=== PATIENT | male | born 1980 | race Caucasian/White ===

== ENCOUNTER 2023-04-25 08:00 | Outpatient (RCR) | payer OTHER, SELFPAY ==
--- NOTE | 2023-04-25 09:00 | BH.SGPN.GN ---
Behaviors/Verbalizations/Mental Status: [Patient was alert and oriented, appropriately dressed and groomed. Eye contact was good, motor activity normal, speech within normal limits. Affect congruent, mood content. Thoughts linear, logical, no signs of hallucinations or delusions. Reviewed patients mood tracker and the patient reported no symptoms of depressed mood, anxiety/panic attacks, agitation/irritability/anger, self-harm urges, or thoughts/risk of suicide.?] Client Response/Progress/Benefit: [This is the patients first group; he was open to share his mental health goals and stressors with the rest of the group. Patient reported his mood was ?peaceful?. 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 The second win is that he got his basement cleaned out for winter. He shared that he does a lot of woodworking in the colder months in his basement, and it needed cleared out. The stressor was finances because he is now only working 3 days a week so he can attend group but has talked with his to plan. Patient was interactive and respectful with other group members about their mental wins and stressors. Patient benefited from the discussion by listening to feedback and giving input on his peer?s stressors and mental health wins. Patient will continue with IOP treatment to help develop healthy skills, promote mood stability, and improve distress tolerance. ] Narrative Note: []
--- NOTE | 2023-04-25 10:10 | BH.SGPN.GN ---
Behaviors/Verbalizations/Mental Status: []Eye contact is fair, at times good. Alert and oriented. Motor activity is appropriate. Appearance is casual. grooming is appropriate. Speech is Appropriate. Mood is anxious. Affect is congruent. Thoughts are linear and logical. No evidence of psychosis or hallucinations. Client Response/Progress/Benefit: []Client active participant throughout group session AEB providing contributions throughout, listening attentively to others, and taking notes throughout session. Group attentive during psychoeducation about emotion regulation and dysregulation. Appeared to connect with scenarios reviewed in group on emotion regulation vs dysregulation. Shared how in the past he would manage his uncomfortable emotions with substances. Client benefited from session by gaining an increased understanding on the importance of managing emotions. Client to continue IOP to improve daily functioning, increase healthy coping, and prevent decompensation.
--- NOTE | 2023-04-25 14:12 | BH.COMM_ITS ---
Communication Note Communication with Client Communication Note: Met with pt to complete initial paperwork and administer the CSSR-S screening and risk assessment. Pt is low risk per the CSSR-S screening and risk assessment. Pt denies any active SI, plan, or intent. Pt states he has had thoughts of thinking things would be better if he were , but denies ever thinking about killing himself. No guns at home. No stockpiles of medications. Therapist counseled on decreasing access to lethal means. Discussed case with Dr. Kaba and pt will be admitted to [facility] tx with a diagnosis of PTSD F43.10.
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
[2023-04-27 12:01] VITALS: BP 116/85; PULSE 51
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
--- NOTE | 2023-04-27 12:59 | BH.DR.ITP ---
Initial Treatment Plan Patient Information Visit Information: ADMISSION DATE: EXPECTED LOS: 4-6 weeks Problems/Symptoms Problem #1:: depression Symptom:: sadness, hopelessness, guilt, decreased concentration, anhedonia, isolation, low energy Problem #2:: Worry, rumination Symptom:: avoidance, nightmares, flashbacks
--- NOTE | 2023-04-27 16:05 | BH.MTP ---
Master Treatment Plan Patient Information Program Physician:: Dr. Amin Primary Therapist:: Sue Pastrana, [facility] Psychiatric Diagnoses Psychiatric Diagnoses:: 1. PTSD 2. Substance-induced mood disorder (F19.94) 3. 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 Cannabis use disorder 5. Methamphetamine and alcohol use disorder (sober since March 17, 2023) 6. Primary support, work and financial issues Diagnosis Code(s):: F43.1 Estimated LOS Estimated LOS (in weeks):: 6 Problem/Goal #1 Problem/Goal #1 Stated Goal:: Client will decrease depressive symptoms, isolation, and agitation due to Major Depressive Disorder through Intensive Outpatient Program.? Description of Barriers: Pt has hx of difficulty tolerating medications and is hesitant on taking medications which could be hindrance to treatment. Potential barriers could be negative thinking, anxious thoughts, isolation, and poor emotion control. Functional Impact: The patient is a 42-year-old male with a history of depression, anxiety, PTSD, methamphetamine use and alcohol use disorder. The patient was referred to the [facility] behavioral health IOP by [facility] adult probation because the patient states my mental health is impacting my ability to function. He currently has some depression, guilt, decreased concentration, worthlessness, lack of motivation, isolation and states he has had low self-esteem for a very long time. Denies any other alcohol or methamphetamine use since March 17, 2023. The patient states that 2 years ago he began hearing voices after methamphetamine use which are auditory hallucinations of voices of people he knows for the most part. He has nightmares, avoidance, exaggerated startle and occasional reexperiencing from this. Goal Relevant Strengths/Supports: Pt is resilient, determined, and reports being motivated to get better. Objectives Objective #1: Stated Objective: Client will learn and utilize 2-3 healthy coping strategies to manage depressive symptoms. Interventions: Therapist and group will utilize CBT techniques to assist client with understanding the connection between thoughts, feelings and behaviors. Education will be provided on behavioral activation. Therapist will assist client in learning internal coping strategies to manage depressive symptoms, along with helping client identify triggers. Discharge Criteria: Client will have achieved this goal when can verbalize and has practiced at least 2 healthy coping strategies that successfully manage depressive symptoms. Target Date: 06/06/23 Review Date: 05/23/23 Objective #2: Stated Objective: Client will identify and replace 2-3 negative thinking patterns that reinforce depressed symptoms. Interventions: Group and therapist will assist the client in identifying, challenging, and replacing dysfunctional thoughts with positive self-enhancing thoughts. Discharge Criteria: Client will have achieved this goal when can identify at least 2 negative thinking patterns, replace thoughts with rational thoughts. Target Date: 06/06/23 Review Date: 05/23/23 Problem/Goal #2 Problem/Goal #2 Stated Goal:: Stabilize anxiety level while increasing ability to function on daily basis. Description of Barriers: Pt has hx of difficulty tolerating medications and is hesitant on taking medications which could be hindrance to treatment. Potential barriers could be negative thinking, anxious thoughts, isolation, and poor emotion control. Functional Impact: The patient is a 42-year-old male with a history of depression, anxiety, PTSD, methamphetamine use and alcohol use disorder. The patient was referred to the [facility] behavioral health IOP by [facility] adult probation because the patient states my mental health is impacting my ability to function. He currently has some depression, guilt, decreased concentration, worthlessness, lack of motivation, isolation and states he has had low self-esteem for a very long time. Denies any other alcohol or methamphetamine use since March 17, 2023. The patient states that 2 years ago he began hearing voices after methamphetamine use which are auditory hallucinations of voices of people he knows for the most part. He has nightmares, avoidance, exaggerated startle and occasional reexperiencing from this. Goal Relevant Strengths/Supports: Pt is resilient, determined, and reports being motivated to get better. Objectives Objective #1: Stated Objective: Client will learn and implement 2-3 calming skills to reduce overall anxiety and manage anxiety symptoms. Interventions: Therapist and group sessions will help client identify physiological warning signs of anxiety, increase awareness of thoughts that increase anxiety, and identify behaviors that reinforce anxious symptoms. Group and individual counseling will teach client calming skills to help manage anxious symptoms. Discharge Criteria: Client will have achieved this goal when can verbalize at least 2 calming skills and reports skills successfully help reduce anxious symptoms. Target Date: 06/06/23 Review Date: 05/07/23 Objective #2: Stated Objective: Client will learn and implement 2-3 problem solving strategies to realistically addressing worries. Interventions: Therapist and group will teach client problem-solving strategies involving defining a problem, brainstorming solutions, selecting and implementing various solutions. Discharge Criteria: Client will have achieved this goal when can verbalize at least two problem solving strategies and utilize the strategies to realistically address worries. Target Date: 06/06/23 Review Date: 05/23/23
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
--- NOTE | 2023-04-28 09:00 | BH.SGPN.GN ---
Behaviors/Verbalizations/Mental Status: [Patient was alert and oriented, appropriately dressed and groomed. Eye contact was good, motor activity normal, speech within normal limits. Affect congruent, mood content. Thoughts linear, logical, no signs of hallucinations or delusions. Reviewed patients mood tracker and the patient reported depressed mood, anxiety/panic attacks, agitation/irritability/anger, self-harm urges, and thoughts/risk of suicide within normal limits.] Client Response/Progress/Benefit: [Patient was engaged and open to the discussion. Patient reported her mood being ?Happy?.??Patient stated his first win was that he started taking his new medication that he wasn?t sure about. The second win was that he has started to finally accept that he can only do so much and that its okay. The patient stated his stressor is money since he isn?t working as much and the voices in his head. He said the voices are typically saying good things but sometimes he gets annoyed with them and wishes they would stop. Patient was interactive and respectful with other group members about their mental wins and stressors. Patient benefited from the discussion by listening to feedback and giving input on her peer?s stressors and mental health wins. Patient will continue with IOP treatment to help develop healthy skills, promote mood stability, and improve distress tolerance. ] Narrative Note: []
--- NOTE | 2023-04-28 10:17 | BH.SGPN.GN ---
Behaviors/Verbalizations/Mental Status: []Pt alert and oriented, neatly dressed and groomed. Eye contact good. Motor activity appropriate. Speech within normal limits. Affect congruent, mood content. Thoughts linear, logical, no signs of hallucinations or delusions. Client Response/Progress/Benefit: [] Pt was an active participant AEB providing input and was actively taking notes. Connected with the topic of pitfalls and listened to group discussion on internal and external barriers that prevent from choosing a healthier path to mental wellness. Group worked together to identify examples of personal internal pitfalls and pt identified theirs as fear of the unknown, helplessness, and difficulty communicating with supports. Pt benefited from group as Pt learned to better identify and normalize potential barriers to improving mental health symptoms. Pt also gained awareness of the difference between external triggers and self-sabotaging behaviors. Pt will continue IOP tx to prevent decompensation, gain healthy coping skills to prevent relapse, and improve mood stability. Narrative Note: []
--- NOTE | 2023-04-28 11:15 | BH.SGPN.GN ---
Behaviors/Verbalizations/Mental Status: []Pt alert and oriented, casually dressed and groomed. Eye contact good. Motor activity appropriate. Speech within normal limits. Affect congruent. Mood euthymic. Thoughts linear, logical, no signs of hallucinations or delusions. Client Response/Progress/Benefit: []Pt was an active participant AEB contribution to discussion, taking notes, and willingness to engage in group activity. Connected with the topic of pitfalls and listened to group discussion on internal and external barriers that prevent from choosing a healthier path to mental wellness. Group worked together to identify examples of internal pitfalls presented in the activity as well as strategies for managing or preventing these. Pt identified personal pitfalls to include: fear of the unknown, mistrust, and difficulties communicating. Pt identified wanting to work on pitfall of communication by practicing checking-in with his on an emotional level. Benefited from group as pt learned to better identify and normalize potential barriers to improving mental health symptoms. Pt to continue IOP to challenge distorted thoughts, increase healthy coping, and prevent decompensation. Narrative Note: []
--- NOTE | 2023-05-02 09:10 | BH.SGPN.GN ---
Behaviors/Verbalizations/Mental Status: [Patient was alert and oriented, appropriately dressed and groomed. Eye contact was good, motor activity normal, speech within normal limits. Affect congruent, mood content. Thoughts linear, logical, no signs of hallucinations or delusions. Reviewed Patients symptom tracker and the patient reported themselves as having no symptoms in depressed mood, anxiety/panic attacks, agitation/irritability/anger, self-harm urges, or thoughts/risk of suicide.] Client Response/Progress/Benefit: [Patient was engaged and open to the discussion. Patient reported his mood to be ?optimistic?. Patients first win was that his medication is working and is happy with it. He does not like how tired it makes him, but he hopes it will subside. The second win was that he spent time with his older kids over the weekend. They painted and made picture frames together. A stressor he said was work. He said that since he only works 3 days a week he is stressing about not getting behind with his job. Patient was interactive and respectful with other group members about their mental wins and stressors. Patient benefited from the discussion by listening to feedback and giving input on his peer?s stressors and mental health wins. Patient will continue with IOP treatment to help develop healthy skills, promote mood stability, and improve distress tolerance. ] Narrative Note: []
--- NOTE | 2023-05-02 10:15 | BH.SGPN.GN ---
Behaviors/Verbalizations/Mental Status: [] Eye contact is good. Motor activity is appropriate. Appearance is casual. Speech is Appropriate. Mood is euthymic. Affect is congruent. Thoughts are linear and logical. No evidence of psychosis. Client Response/Progress/Benefit: [] Client was attentive during interactive group discussions AEB by writing notes, asking questions, and sharing when prompted. Attentive during psychoeducation on the six types of boundaries (physical, emotional, intellectual, sexual, time, and material). Along with peers, pt contributed to interactive discussion identifying common challenges to setting and maintaining healthy boundaries which included; fear of other's response, guilt, fear of losing relationships, and resentment for having to establish the boundary in the first place. Client along with peers identified the benefits to setting boundaries. Client shared he struggles with setting boundaries because he has had past negative experiences when establishing a boundary, as well as struggles with not knowing how to establish said boundary in a non-confrontational way. Client benefited from increased awareness and insight on the importance/benefit to setting healthy boundaries. Will continue in IOP to improve daily functioning, increase healthy coping and communication with supports, and prevent decompensation. Narrative Note: []
--- NOTE | 2023-05-02 11:15 | BH.SGPN.GN ---
Behaviors/Verbalizations/Mental Status: []Pt alert and oriented, casually dressed and groomed. Eye contact good. Motor activity appropriate. Speech within normal limits. Affect congruent, mood euthymic. Thoughts linear, logical, no signs of hallucinations or delusions. Client Response/Progress/Benefit: []Pt responded well to session, engaged and contributing. Pt attentive during psychoeducation on the different boundary styles. Pt reports connecting most with porous boundary setting style and shared this has impacted his ability to consistently take care of his own mental health needs. Group brainstormed various strategies for improving ability to establish and maintain healthy boundaries. Reported he wants to work on using more assertive communication when trying to establish a boundary. Appeared to benefit from increasing insight to boundary setting styles and the impacts on mental health. Will continue IOP tx to prevent decompensation, improve ability to challenge thought distortions, and increase healthy coping. Narrative Note: []
== END 2023-05-03 23:59 ==
LOC: BHIOP 08:00
PROVIDERS: Referring Provider Psychiatry & Neurology Psychiatry; Visit Provider Psychiatry & Neurology Psychiatry
DX: F43.10 Post-traumatic stress disorder, unspecified (principal); F19.94 Other psychoactive substance use, unspecified with psychoactive substance-induced mood disorder; F12.90 Cannabis use, unspecified, uncomplicated; F10.91 Alcohol use, unspecified, in remission; F11.91 Opioid use, unspecified, in remission
CPT/HCPCS: S9480; 90837; 90853

== ENCOUNTER 2023-05-04 06:49 | Outpatient (RCR) | payer OTHER, SELFPAY ==
[2023-05-04 00:55] VITALS: BP 116/85; PULSE 51
--- NOTE | 2023-05-04 09:00 | BH.SGPN.GN ---
Behaviors/Verbalizations/Mental Status: [Patient was alert and oriented, appropriately dressed and groomed. Eye contact was good, motor activity normal, speech within normal limits. Affect congruent, mood content. Thoughts linear, logical, no signs of hallucinations or delusions. Reviewed Patients symptom tracker and the patient reported depressed mood, anxiety/panic attacks, aggravation/irritation/anger, self-harm urges, and risk/thoughts of suicide within patients normal base level.] Client Response/Progress/Benefit: [Patient was engaged and open to the discussion. 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 ? 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 The second win was described as engaging his children in a new chore board. The patient and his wanted to get their children more involved with the chores and it has been working out well for them. His stressor was that he somehow pulled his neck which is still sore today. He stated he is unsure what happened to it. Patient was interactive and respectful with other group members about their mental wins and stressors. Patient benefited from the discussion by listening to feedback and giving input on his peer?s stressors and mental health wins. Patient will continue with IOP treatment to help develop healthy skills, promote mood stability, and improve distress tolerance. ] Narrative Note: []
--- NOTE | 2023-05-04 10:10 | BH.SGPN.GN ---
Behaviors/Verbalizations/Mental Status: [] Eye contact is good. Motor activity is appropriate. Appearance is casual. Speech is Appropriate. Mood is euthymic. Affect is full. Thoughts are linear and logical. No evidence of psychosis. Client Response/Progress/Benefit: [] Pt participated at times during the group discussions however was mostly quiet and attentive AEB note-taking. Active participant in experiential activity. Attentive during interactive discussion in which group worked together to define resilience (i.e. continuing to bounce back from hardship; willingness to keep trying) and identify benefits of resilience. Attentive during interactive discussion on if resilience is something we are born with or can learn. Provided appropriate thoughts and feedback. Able to relate the experiential activity back to topic of resilience. Worked well in small groups to identify strategies to build resilience. Benefited from increased awareness of the role of resilience in mental health and ways to build resilience. Will continue in IOP to prevent decompensation, increase healthy coping, and to improve functioning. Narrative Note: []
--- NOTE | 2023-05-04 11:10 | BH.SGPN.GN ---
Behaviors/Verbalizations/Mental Status: []Pt alert and oriented, neatly dressed and groomed. Eye contact good. Motor activity appropriate. Speech within normal limits. Affect congruent, mood euthymic. Thoughts linear, logical, no signs of hallucinations or delusions. Client Response/Progress/Benefit: [] Pt responded well to session AEB completing the resilience worksheet provided. Pt actively participated in the discussion and worked cooperatively with group to identify strategies to enhance each of the components discussed. Pt reports belief they already use resilience traits of taking decisive action, maintaining a hopeful outlook, and moving towards goals. Pt discussed that they could work more on improving self-care practices. ?Pt seemed to benefit from discussing strategies for improving personal resilience and identifying resilience traits Pt already possesses. Will continue IOP tx to promote use of healthy coping skills, prevent relapse, and increase distress tolerance skills. ??? Narrative Note: []
--- NOTE | 2023-05-06 09:00 | BH.SGPN.GN ---
Behaviors/Verbalizations/Mental Status: [] Eye contact is good. Motor activity is appropriate. Appearance is casual. Speech is Appropriate. Mood is depressed. Affect is congruent. Thoughts are linear and logical. No evidence of psychosis. Reviewed daily check in sheet and no reports of suicidal ideations or intent. Client Response/Progress/Benefit: [] Pt particpated at times during the group discussion. Attentive. Daily symptom tracker notes 08/08 for depression. Shared with the group that he has been sick for the past couple days which has impacted his motivation. Emotion for today is is irritated. Shared that he had a verbal argument with spouse yesterday we worked it out though. May be still ruminating on the conflict however did not share more with the group. Overall reports that life is stressful, however he is attempting to remain active and follow through with some routines such as family dinners. Reports being behind of stuff for his work which is another stressor. Limited progress noted. Will continue in IOP to prevent decompensation, stablize moood, increase healthy coping, and to improve functioning. Narrative Note: []
--- NOTE | 2023-05-06 10:15 | BH.SGPN.GN ---
Behaviors/Verbalizations/Mental Status: [] Eye contact is good. Motor activity is appropriate. Appearance is casual. Speech is Appropriate. Mood is anxious. Affect is congruent. Thoughts are linear and logical. No evidence of psychosis. Client Response/Progress/Benefit: [] Pt participated at times during the group discussion. Participated in the group activity and was able to relate the activity to the topic of coping skills. Provided feedback during interactive discussion on coping skills. Group identified aspects that can influence copings skills which included; environment, learned behaviors, past experiences, accessibility, and the amount of effort placed in practicing skills. Discussion on the difference between internal vs external coping skills as well as healthy vs unhealthy coping skills such as; denial, minimization, crying, lashing out, substance abuse, retail therapy, and sleeping to escape. Benefited from increased education on coping skills. Will continue in IOP to prevent decompensation, increase healthy coping, and improve functioning to return to work. Narrative Note: []
--- NOTE | 2023-05-09 09:02 | BH.SGPN.GN ---
Behaviors/Verbalizations/Mental Status: [] Pt alert and oriented, Casually dressed and groomed. Eye contact fair to poor. Motor activity appropriate. Speech within normal limits. Affect constricted, mood dsythymic. Thoughts linear, logical, no signs of hallucinations or delusions. Reviewed pt?s symptom tracker, no risk for suicidal ideation, plan, or intent. Client Response/Progress/Benefit: [] Client responded well to session as evidenced by listening attentively to others and sharing with others. Per symptom tracker client reported a 0/5, with 5 being severe, for depressed mood and a 0/5 for anxiety. Client stated mental health positive as spending quality time with his family and connecting with them. Client reported additional positive as getting a big sale for work. Client stated getting a big sale for work helps decrease financial stress. Client reported this new sale is also a stressor because he's worried about getting the job done on time. Client shared in a small group that he was struggling a little because he's dog unexpectedly on Tuesday. Client didn't elaborate on his feelings. Client to continue IOP to challenge distortions, increase emotion regulation, and prevent decompensation. Narrative Note: []
--- NOTE | 2023-05-11 08:56 | BH.COMM ---
Communication Note Communication with Client Communication Note: Cancelled IOP today. Was scheduled to meet with program psychiatrist for follow-up. He denied any medication issues last week. Will reschedule to meet with program psychiatrist next week (05/18/23)
--- NOTE | 2023-05-12 09:05 | BH.SGPN.GN ---
Behaviors/Verbalizations/Mental Status: [Patient was alert and oriented, appropriately dressed and groomed. Eye contact was good, motor activity normal, speech within normal limits. Affect congruent, mood content. Thoughts linear, logical, no signs of hallucinations or delusions. Reviewed Patients symptom tracker and the patient reports depressed mood as moderate and anxiety/panic attacks as low/moderate. Patient does not report symptoms of aggravation/irritation/anger, self-harm urges, or risk/thoughts of suicide.] Client Response/Progress/Benefit: [Patient was engaged and open to the discussion. Patient reported his mood as ?stressed?. 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 His second win is that his family has been supportive of him more recently since he has been a little down since his dog unexpectedly last week. His stressor is that he blames himself for his dog passing away because he knew their fence needed fixed and he hadn?t done it yet and the dog escaped. Patient was interactive and respectful with other group members about their mental wins and stressors. Patient benefited from the discussion by listening to feedback and giving input on his peer?s stressors and mental health wins. Patient will continue with IOP treatment to help develop healthy skills, promote mood stability, and improve distress tolerance. ] Narrative Note: []
--- NOTE | 2023-05-12 10:10 | BH.SGPN.GN ---
Behaviors/Verbalizations/Mental Status: []Pt alert and oriented, casually dressed and groomed. Eye contact fair. Motor activity appropriate. Speech within normal limits. Affect congruent, mood euthymic. Thoughts linear, logical, no signs of hallucinations or delusions. Client Response/Progress/Benefit: [] Pt engaged in session AEB listening attentively to others and providing insight to group discussion. Pt engaged in activity, able to connect how it can be uncomfortable and difficult to accept when things are out of one?s own control. Pt worked with group to identify what things in life can be hard to accept. Group identified things hard to accept as: of a loved one, body image, loss of relationship, mental health diagnosis, other?s behaviors, and past decisions. Pt shared he personally is struggling with accepting his decrease in function, having to take medications, and mental health. Pt seemed to benefit from increased awareness of importance of acceptance. Pt to continue IOP tx to prevent decompensation, decrease impulsiveness, and improve distress tolerance.
--- NOTE | 2023-05-12 15:48 | BH.MDN_ITS ---
Multi-Disciplinary Note Note 60-min Individual: Time Started:: 11:15 Date: 05/12/23 Purpose of session/treatment goals addressed:: Purpose of session was to address goals 1 and 2 from MTP. Eye Contact:: Fair Motor Activity:: Restless Appearance:: Casual Speech:: Appropriate and Rambling Mood:: Anxious Affect:: Congruent Thoughts:: Logical and No evidence of hallucinations/delusions noted Staff Interventions:: CBT techniques, rapport building, strengths perspective, goal setting and taught coping skills Client Response:: Client apologized for leaving group without telling anybody on Tuesday. Client stated he was having lots of different emotions because he was thinking about his dog dying Over the weekend. Client stated he was ruminating and beating himself up which led to him leaving group because he was feeling overwhelmed and needed space. Client able to recognize that this was not a positive choice for him because it's what he has done in the past which often led to relapse. Colt agreed he could have handled the situation better by communicating to staff that he was struggling and needed to leave or needed some help. Client agreed he will no longer leave IOP without informing a staff member. Client recognizes his choice on Tuesday led to worry from staff. Client reported he's still struggling with the loss of his dog because he sees how it's impacting his kids and feels horrible that he didn't fix the fence. With assist lotus from therapist he is able to recognize beating himself up will not make things better and if anything will continue to impact his mood negatively. 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 Client reported he was taking to the emergency room by his [id number] and was told he had a concussion. Therapist encouraged client to follow up with recommendations from the ER doctor to help with management of this concussion and highly encouraged client to take time this weekend for brain rest. Client reported he's having a hard time come to terms with the fact he might not be able to do as much as he used to be able to do when he was functioning at 100%. Client stated he recognizes he needs to take time for self-care so that he can get back to how he would like to function. Client agreeable goal for the weekend is to take time for rest and not push himself. Risks/Concerns:: Client denies suicidal ideation, plan, or intention to date. future oriented. family identified as protective factor. Progress Toward Goals/Plan:: Client reverted back to old coping skills of avoiding dealing with difficult emotions when he left IOP without telling anyone on Tuesday of this week. Client has hx of escaping when he doesn't know how to deal with his emotions in the moment and in the past this would often lead to relapse. Progress can be noted that client reported not using any substances after leaving IOP Tuesday. Client seems to recognize this was an unhealthy choice for him and reported being committed moving forward to doing better with communicating what he needs from staff. Client was diagnosed with a concussion yesterday after falling off a barn. Client is experiencing brain fog today. This head injury could be hindrance to his treatment. Client encouraged to follow through with doctor recommendations and to get brain rest. Client to continue IOP to improve distress tolerance, improve problem solving skills, and prevent decompensation. Time Stopped:: 12:12
--- NOTE | 2023-05-16 09:05 | BH.SGPN.GN ---
Behaviors/Verbalizations/Mental Status: [] Pt alert and oriented, neatly dressed and groomed. Eye contact good. Motor activity appropriate. Speech within normal limits. Affect congruent, mood dysthymic. Thoughts linear, logical, no signs of hallucinations or delusions. Reviewed pt?s symptom tracker, no risk for suicidal ideation, plan, or intent 05/16/23 Client Response/Progress/Benefit: []Pt responded well to session, attentive and receptive to feedback. Pt reports feeling hopeful today, but pt shared last week was very rough. Pt stated he got a concussion which has been impacting his cognitive functioning, but pt feels his cognitive functioning has been off since starting Zyprexa. Pt also reports belief that he has been more depressed since starting Zyprexa as well. Pt missed last Tuesday when he was scheduled to see Dr. Kaba so pt will see Dr. Kaba this week. Pt shared that his mental health wins are that he made it in today and had a few positive moments over the weekend. Pt appeared to benefit from connecting with peers. Pt will continue IOP tx to prevent decompensation, monitor medication changes, and improve daily functioning. Narrative Note: []
--- NOTE | 2023-05-16 10:15 | BH.SGPN.GN ---
Behaviors/Verbalizations/Mental Status: [Patient was alert and oriented, casually dressed and groomed. Eye contact good, motor activity normal, speech within normal limits. Affect congruent, mood content. Thoughts linear, logical, no signs of hallucinations or delusions. ] Client Response/Progress/Benefit: [ Patient was open and participated in group discussions. Attentive during psychoeducation on stages of change. Participated during the activity. Patient stated that a positive change in his life is that he is taking medicine although he does not want to. He stated that he knows that he should continue trying other medications to see if they work but was discouraged by the first one not doing what it should. Patient benefited from increased awareness of stages of changes and how emotions impact change. Will continue in IOP to promote gains, further combat distorted thinking, and improve daily functioning.] Narrative Note: []
--- NOTE | 2023-05-16 14:46 | BH.MDN_ITS ---
Multi-Disciplinary Note Note 60-min Individual: Time Started:: 11:20 Date: 05/16/23 Purpose of session/treatment goals addressed:: Purpose of session was to address goals 1 and 2 from MTP. Eye Contact:: Poor Motor Activity:: Restless Appearance:: Casual Speech:: Tangential and Rambling Mood:: Anxious and Depressed Affect:: Constricted Thoughts:: Racing and No evidence of hallucinations/delusions noted Staff Interventions:: thought challenging, CBT techniques, mindfulness skills, strengths perspective and taught coping skills Client Response:: Client reported he has been struggling significantly with having brain fog since Tuesday of last week. Client reported he did stop smoking his prescribed marijuana and is unsure if that is contributing to his brain fog but recognizes he also had a head injury when he fell off the ladder at his job site. Client stated he is having a hard time determining if his concussion is causing some of the difficulty with concentration and brain fog. 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 Client reported he did get frustrated yesterday because he does not know if he will be able to accomplish the jobs that he has lined up. Client reported he was getting stuck in his head thinking that he is never going to get back to the function he used to be at. Client recognizes that he is continuing to expect himself to be able to give 100% when he is currently function at 50%. Therapist brought up in session that client's called in and shared some concerns about client. Therapist told client that his told receptionist/telephone operator this morning that she has noticed a negative personality switch in the last 2 weeks with increased anger, lack of sleep, increased hallucinations that are insulting client and reporting that he wants to give up. Client stated he is unsure of what his was talking about in regards to his anger because he feels like he has not treated anybody in that way. Client admits that he has been angry at himself because he cannot function at what he would like. Client reported last night he did tell his that she should just divorce him because he cannot provide for her like he should. Megan swenson stated he has mentioned a few times that he just wants to give up but reinforced several times that does not mean he wants to kill himself but is referring to not wanting to keep taking medications and getting treatment. Client signed for release for therapist to contact his today to get more information on what she was talking about this morning so that he can better understand her perspective. Client stated his does think he should switch his medications but he is worried about having to try a different medication since his only been 3 weeks. Client reported he continues to struggle with depressed symptoms daily, decreased concentration, difficulty processing information, racing thoughts, auditory hallucinations and agitation toward self. Client reported he did not do the homework from last session of practicing breathing and grounding tools. Recognizes if he does not practice the skills outside of treatment his progress could be limited. Client agreeable today to practice at least one of the skills learned in session and to engage in some self care. Risks/Concerns:: Client denies active suicidal ideation, intention, and plan. Future oriented. Identifies family as protective factors. Progress Toward Goals/Plan:: Progress limited as evidenced by client continuing to struggle with depressed and anxious symptoms. Client did have a recent concussion last week and it is unclear if this head injury could be contributing to the increased brain fog and difficulty processing information. Client stated he was offered an aftercare program for postconcussion but he does not believe he will complete that program. Therapist reminded client of how concussions could be impactful to functioning and ability to complete tasks. Plan is for client to talk to his ann about potentially pushing off one of his work projects for about 2 to 3 weeks so that he can completely focus on IOP. Client recognizes since starting IOP he has been so focused on trying to get certain jobs done that he really has not been able to focus on his mental health treatment. Time Stopped:: 12:30
--- NOTE | 2023-05-18 09:00 | BH.SGPN.GN ---
Behaviors/Verbalizations/Mental Status: [] Eye contact is good. Motor activity is appropriate. Appearance is casual. Speech is Appropriate. Mood is depressed. Affect is congruent. Thoughts are linear and logical. No evidence of psychosis. Reviewed daily check in sheet and no reports of suicidal ideations or intent. Client Response/Progress/Benefit: [] Pt participated at times during the group discussion. Attentive. Daily symptom tracker notes no significant distress, however pt has tendency to minimize. Shared with the group that he had a concussion last week, however has not allowed himself to rest my brain. This led to difficulty managing his emotions as well as physical symptoms (brain fog, fatigue, etc). Insight that he places unrealistic expectations on himself and is working on accepting that self-care and rest are just as important as working and making money. He did allow himself to lay in dark room for extended period to rest his brain and I feel so much better. Progress noted AEB practicing acceptance, self-care, and challenging unrealistic expectations. Benefited from group support, encouragement, and feedback. Will continue in IOP to prevent decompensation, stabilize mood, and improve functioning. Narrative Note: [] Behaviors/Verbalizations/Mental Status: [] Eye contact is good. Motor activity is appropriate. Appearance is casual. Speech is Appropriate. Mood is depressed. Affect is congruent. Thoughts are linear and logical. No evidence of psychosis. Reviewed daily check in sheet and no reports of suicidal ideations or intent. Client Response/Progress/Benefit: [] Pt participated at times during the group discussion. Attentive. Daily symptom tracker notes no significant distress, however pt has tendency to minimize. Shared with the group that he had a concussion last week, however has not allowed himself to rest my brain. This led to difficulty managing his emotions as well as physical symptoms (brain fog, fatigue, etc). Insight that he places unrealistic expectations on himself and is working on accepting that self-care and rest are just as important as working and making money. He did allow himself to lay in dark room for extended period to rest his brain and I feel so much better. Progress noted AEB practicing acceptance, self-care, and challenging unrealistic expectations. Benefited from group support, encouragement, and feedback. Will continue in IOP to prevent decompensation, stabilize mood, and improve functioning. Narrative Note: []
--- NOTE | 2023-05-18 10:15 | BH.SGPN.GN ---
Behaviors/Verbalizations/Mental Status: [Patient was alert and oriented, casually dressed and groomed. Eye contact good, motor activity normal, speech within normal limits. Affect congruent, mood content. Thoughts linear, logical, no signs of hallucinations or delusions. ] Client Response/Progress/Benefit: [Patient was open and participated in group discussions. Attentive during psychoeducation on growth mindset. Participated during the activity. Interactive group discussion on growth mindset in which group verbalized their current fixed mindsets and how they affect their mental health. Patient shared that one of his fixed thoughts was ?I can?t do it?. Patient benefited from increased awareness of growth mindset and fixed thoughts and how fixed thoughts impact their mental health. Will continue in IOP to promote gains, further combat distorted thinking, and improve daily functioning.] Narrative Note: []
--- NOTE | 2023-05-18 11:10 | BH.SGPN.GN ---
Behaviors/Verbalizations/Mental Status: []Pt alert and oriented, neatly dressed and groomed. Eye contact good. Motor activity appropriate. Speech within normal limits. Affect congruent, mood calm. Thoughts linear, logical, no signs of hallucinations or delusions. Client Response/Progress/Benefit: [] Pt was an active participant during activity and discussion AEB providing some input, connecting with peers, as well as taking notes throughout. Pt did well to engage as group worked on identifying characteristics and benefits of adopting a growth mindset. Worked with fellow participants in reframing the example fixed thoughts into growth mindset thoughts. Pt worked on changing own fixed thought of ?why even try I won?t succeed? to growth thought of ?if I try I might succeed.? Benefitted from discussing benefits of growth mindset and brainstorming strategies for prompting growth-mindset. Pt appeared to benefit from working in small groups to challenge own thoughts and help peers. Pt will continue IOP tx to prevent decompensation, improve daily functioning, and increase healthy self-care practices. Narrative Note: []
--- NOTE | 2023-05-18 12:07 | PCM.BH.PN ---
Progress Note Progress Note: History of Present Illness/Interim History: The patient is a 42-year-old male with a history of depression, anxiety, PTSD, methamphetamine use and alcohol use disorder. [facility] 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 The patient denies any drug use except marijuana since March 17, 2023. He has a long history of methamphetamine relapse where he sober for several months and then slips up 1 time due to my mental health issues and relapses. His auditory hallucinations continue and are somewhat atypical. They are saying pleasant things and he states that they are better now and he hears him much less but he states that sometimes they are worse during the day while he is at work and if he changes what he is doing he is able to ignore them. When he lays down to go to sleep at night he does not hear them and he sleeps 7 to 9 hours a night and gets to sleep with no problem. He denies any self-harm since 2021 by cutting. The patient had a concussion in May 11 at work and did have loss of consciousness and went to the emergency room. He was referred to a concussion rehab place because he has had 7 or 8 concussions in his life. Patient states that his mood has been somewhat irritated mostly with his but he is unclear on this. He feels some brain fog and difficulty focusing since his concussion on May 11. He is tolerating the Zyprexa well and denies any side effects on it and feels he may be a little better overall. But he continues to have racing thoughts which are anxiety thoughts. He denies passive thoughts of , suicidal ideation, homicidal ideation, delusions or any other hallucinations other than the auditory ones notated above. The patient discontinued medical marijuana use 1 week ago as he understood it could be making his hallucinations worse and not helping his anxiety. He states that his anxiety has not worsened since stopping the marijuana use. Current Psychiatric Medications: [] Zyprexa 5 mg p.o. nightly (x3 weeks) Mental Status Examination: [] The patient is a 42-year-old male who is tall and thin and appears normal for stated age and casually dressed and groomed with good hygiene. Eye contact is good and speech is normal rate and rhythm and fluent with no pressure. Mood is depressed and anxious. Affect is full and normal. There is no psychomotor agitation or retardation. Thought process is goal-directed and organized but occasionally overinclusive and talkative. Thought content: There is evidence of auditory hallucinations daily since March 2021 which began on methamphetamine and have continued although the improved recently. They say positive things that are not command hallucinations. He denies any other type of hallucinations or any delusions. There is no evidence of passive thoughts of , suicidal ideation, plan for suicide, homicidal ideation. Reality testing is intact. Intelligence is average. Insight is limited. Judgment is intact. Impulsivity is high. Diagnoses: [] 1. PTSD 2. Substance-induced mood disorder (F19.94) 3. 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 Cannabis use disorder 5. Methamphetamine and alcohol use disorder (sober since March 17, 2023) 6. Recent concussion and history of numerous concussions 7. Primary support, work, legal and financial issues Plan: [] The patient will continue the IOP at [facility] as the structure, support, education and group therapy will hopefully prevent worsening of the patient's symptoms that might require hospitalization. He felt safe during the interview and if it anytime he does not feel safe he will let us know or go to the emergency room. The risk, options, possible complications and side effects of the medications were discussed again with the patient and he understands and accepts these. The patient will continue to stay sober from marijuana and all other drugs. He agrees to increase his Zyprexa to 7.5 mg p.o. nightly to help with his irritability and his hallucinations. He will continue to follow-up with his outpatient providers and I will see the patient in follow-up in 2 weeks.
--- NOTE | 2023-05-18 15:34 | BH.TPR ---
Treatment Plan Review Demographics Date of Admission:: 04/22/23 Date of Treatment Plan Review:: 05/18/23 Admitting Diagnoses:: 1. PTSD 2. Substance-induced mood disorder (F19.94) 3. 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 Cannabis use disorder 5. Methamphetamine and alcohol use disorder (sober since March 17, 2023) 6. Primary support, work and financial issues Current Diagnoses:: 1. PTSD 2. Substance-induced mood disorder (F19.94) 3. 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 Cannabis use disorder 5. Methamphetamine and alcohol use disorder (sober since March 17, 2023) 6. Primary support, work and financial issues Patient Status Patient's Response to Treatment:: Pt's attendance has been inconsistent since starting IOP. He missed several days early in treatment due to being sick and has missed another session recently due to having a concussion. When pt does attend he often is engaged in session, takes notes, and provides feedback at times. Pt does seem to minimize his symptoms AEB pt reporting low scores on his daily symptom tracker and then sharing about feeling depressed daily in session. Status of Current Problems and Symptoms: Ongoing problems. Pt reports feeling depressed and having daily worries that he won't be able to function at 100%. 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 Pt reports negative thoughts about self because worried he can provide for his family. Pt continues to report auditory hallucinations, but does state the hallucinations have decreased in the last week. Pt fell off a barn at his jobsite last week and was diagnosed with a concussion. It is unclear if the brain fog and difficulty concentrating are from his concussion. Pt's called in to share concerns about pt. Pt's stated she has noticed a negative personality change in him for the last two weeks with decreased sleep, increase anger, and irritability. Pt reports he does not notice any increase in anger towards others, admits to anger towards self because he wants to be better. Pt states he has been sleeping very good and hasn't had nightmares in several days. Therapist has a scheduled call with pt's tomorrow to obtain collateral since the information provided from pt vs doesn't match up. Progress Problem #1: Problem Name:: Depression Status of Goals:: Obj 1 - not met. Client is able to identify healthy coping skills, but not applying skills consistently. Per DSM 5 scores for depression at review he is reporting a 50% increase in depression compared to admission scores. Obj 2 - not met. Client is struggling with brain fog which has made it more challenging for him to identify and challenge negative thinking. Team Recommendations:: Team recommends continued work on goal and objectives. Will reinforce importance of practicing skills outside treatment. Client did experience head injury recently at a job site and was seen by medical staff. It is unclear how much the head injury is impacting his concentration and brain fog. Problem #2: Problem Name:: Anxiety Status of Goals:: Obj 1 - met, ongoing work encouraged. Client is able to identify healthy calming skills like belly breathing, grounding, and taking a walk. Client has been practicing this skills and per DSM 5 anxiety has decreased by 75% compared to admission scores. Obj 2 - not met. Client has been working on anxiety management and we have not had sufficient time to focus on problem solving skills. Client's anxiety and depression symptoms have impacted his ability to effectively problem solve. Client's recent concussion could be hindrance to this objective. Team Recommendations:: Team recommends continued work on current goals and objectives. Client's medication has been increased to help reduce auditory hallucinations. Client's hallucinations are a barrier to progress and if medication can continue to help decrease the auditory hallucinations this will likely help client be able to focus better to utilize skills. Client was open to medication adjustment because seeing some improvement with new medications. This is improvement/progress for client considering at admission he was very hesitant to take medications.
--- NOTE | 2023-05-23 09:00 | BH.SGPN.GN ---
Behaviors/Verbalizations/Mental Status: [Patient was alert and oriented, appropriately dressed and groomed. Eye contact was good, motor activity normal, speech within normal limits. Affect congruent, mood content. Thoughts linear, logical, no signs of hallucinations or delusions. Reviewed Patients symptom tracker and the patient reports depressed mood, anxiety/panic attacks, aggravation/irritation/anger, self-harm urges, and risk/thoughts of suicide within patients normal base level.] Client Response/Progress/Benefit: [Patient was engaged and open to the discussion. Patient reported his mood to be ?happy?. 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 The second win was that he was in group today because coming and staying consistent has been a struggle for him. Hes trying to keep himself accountable and force himself to come even when he does not feel like it. The patients stressor was money because of the holidays coming up and lack of jobs coming in makes them more tight than normal especially since he doesn?t work as much. Patient was interactive and respectful with other group members about their mental wins and stressors. Patient benefited from the discussion by listening to feedback and giving input on his peer?s stressors and mental health wins. Patient will continue with IOP treatment to help develop healthy skills, promote mood stability, and improve distress tolerance. ] Narrative Note: []
--- NOTE | 2023-05-23 10:10 | BH.SGPN.GN ---
Behaviors/Verbalizations/Mental Status: []Pt alert and oriented, casually dressed and groomed. Eye contact fair. Motor activity appropriate. Speech within normal limits. Affect constricted, mood anxious. Thoughts linear, logical, no signs of hallucinations or delusions. Client Response/Progress/Benefit: []Pt receptive of session, actively engaged throughout AEB taking notes, providing some input, and listening to discussion. Appeared to connect with group topic of cognitive distortions and the impact of thought patterns on mental health, coping behaviors, and relationships. Pt reports utilizes distortions of all or nothing thinking, mental filter, and magnification. Pt appeared to benefit from gaining insight on distorted thinking patterns and how this impacts overall mental health. Will continue IOP tx to improve mood stability, challenge negative thinking, and prevent decompensation.
--- NOTE | 2023-05-23 11:15 | BH.SGPN.GN ---
Behaviors/Verbalizations/Mental Status: [] Eye contact is good. Motor activity is within normal limits. Appearance is casual. Speech is Appropriate. Mood is euthymic and anxious. Affect is congruent. Thoughts are linear and logical. No evidence of psychosis. Client Response/Progress/Benefit: [] Pt was an attentive participant during group discussions and activity. Pt was placed in a smaller group and participated in quiz-show format in which small groups competed against each-other to answer questions based on identifying, challenging, and reframing cognitive distortions. Pt was engaged in the smaller group, participated in group interactions to brainstorm answers, and appeared to be comprehending cognitive distortions. Stated learning that ?to prevent distorted thinking, I need to rethink each situation I'm struggling with and try to ground myself internally before responding?. Benefited from gaining further insight and awareness of cognitive distortions as well as practicing ways to reframe and challenge thoughts. Will continue in IOP to promote distress tolerance, stabilize mood, and increase self-care. Narrative Note: []
--- NOTE | 2023-05-25 09:05 | BH.SGPN.GN ---
Behaviors/Verbalizations/Mental Status: [] Eye contact is good. Motor activity is appropriate. Appearance is casual. Speech is Appropriate. Mood is euthymic. Affect is full. Thoughts are linear and logical. No evidence of psychosis. Reviewed daily check in sheet and no reports of suicidal ideations or intent. Client Response/Progress/Benefit: [] Pt was an active participant in group discussion. Attentive. Emotion for today is optimistic. Daily symptom tracker notes no significant distress. Pt states its a good day. He goes on to elaborate on tasks that he has completed today and that overall he feels hopeful and motivated rather than hopeless. He attributes improved functioning and mood to increased self-care and decreased ruminations. Shared that he is managing his stress and emotions better this week. Progress noted per pt report. Benefited from group support, encouragement, and feedback. Will continue in IOP to stabilize mood, prevent decompensation, increase healthy coping, and improve functioning. Narrative Note: []
--- NOTE | 2023-05-25 10:15 | BH.SGPN.GN ---
Behaviors/Verbalizations/Mental Status: [Patient was alert and oriented, casually dressed and groomed. Eye contact was good, motor activity normal, speech within normal limits. Affect congruent, mood depressed. Thoughts linear, logical, no signs of hallucinations or delusions. ] Client Response/Progress/Benefit: [Patient was open and participated in group discussions. Attentive during psychoeducation Goal Setting. Participated during the activity. Interactive group discussion on Goal Setting in which group verbalized how to create the best and most effective goal using the SMART Goal model for their lives. Patient stated that there are a lot of steps for him to take when accomplishing a goal. Patient shared that its nice to have mini goals so that its easier to take on. Patient benefited from increased awareness of stages of changes and how emotions impact change. Will continue in IOP to promote gains, further combat distorted thinking, and improve daily functioning.] Narrative Note: []
--- NOTE | 2023-05-25 11:10 | BH.SGPN.GN ---
Behaviors/Verbalizations/Mental Status: []Pt alert and oriented, casually dressed, appropriately groomed. Eye contact fair. Motor activity appropriate. Speech within normal limits, mostly quiet. Affect congruent, mood anxious. Thoughts linear, logical, no signs of hallucinations or delusions. Client Response/Progress/Benefit: [] Pt was engaged during discussion and willing to complete the worksheet challenging them to develop a personal SMART goal. Pt chose the goal of being realistic with his expectations at work. Pt stated this will benefit pt by helping decrease stress and anxiety due to not setting such high expectations. Pt identified potential barriers and solutions to accomplishing goal. Pt receptive to identifying solutions for these barriers and willing to begin working on this goal. Benefited from this group by developing a short-term SMART goal related to mental health. Will continue IOP tx to continue use of healthy coping skills, challenge distortions, and prevent decompensation.
--- NOTE | 2023-05-27 10:15 | BH.SGPN.GN ---
Behaviors/Verbalizations/Mental Status: []Pt alert and oriented, casually dressed and groomed. Eye contact good. Motor activity appropriate. Speech within normal limits. Affect congruent, mood euthymic. Thoughts linear, logical, no signs of hallucinations or delusions. Client Response/Progress/Benefit: []Pt was an active participant in group discussions. Attentive during psychoeducation on 4 types of conflict styles (Competing, Collaborating, Avoiding, and Accommodating). Worked with group to define conflict and identify how conflict can be beneficial. With peers, pt identified barriers to addressing or managing conflict which included: not wanting to hurt others, unmanaged emotions, assumptions, and cognitive distortions. Pt believes they most often use the collaborating type and pt feels that this helps pt in his work and with making good decisions.?Benefited from group due to increase insight and awareness of benefits to conflict, conflict styles, and obstacles to managing conflict. Will continue in IOP to promote mood stability and increase use of healthy coping skills. Narrative Note: []
--- NOTE | 2023-05-27 11:10 | BH.SGPN.GN ---
Behaviors/Verbalizations/Mental Status: []Pt alert and oriented, casually dressed and groomed. Eye contact good. Motor activity appropriate. Speech within normal limits. Affect congruent, mood euthymic. Thoughts linear, logical, no signs of hallucinations or delusions. Client Response/Progress/Benefit: [] Pt was an active participant in group discussions and activity. Attentive during psychoeducation. Along with peers was able to reflect on what conflict resolution skills can be useful outside of IOP. Pt chose to continue to work on the conflict resolution skills of taking turns speaking when addressing conflict or difficulty conversations. Benefited from practicing and learning conflict resolution skills. Will continue in IOP to monitor medication, increase emotional regulation skills, and improve mood stability. Narrative Note: []
--- NOTE | 2023-05-27 14:58 | BH.MDN ---
Multi-Disciplinary Note Note 45-min Individual: Time Started:: 09:04 Date: 05/27/23 Purpose of session/treatment goals addressed:: Purpose of session was to address goals 1 and 2 from MTP. Eye Contact:: Fair Motor Activity:: Restless Appearance:: Casual Speech:: Appropriate Mood:: Irritable Affect:: Constricted Thoughts:: Linear, Logical and No evidence of hallucinations/delusions noted Staff Interventions:: thought challenging, motivational interviewing, CBT techniques, rapport building, strengths perspective and goal setting Client Response:: Client reported yesterday he chose to not go to his side of the [employer] holiday gathering because he found out his [id number] yeyooise kids that she didn't want client to be there. Client stated initially that it was fine? that she didn't want him to go. Client reported he ended up staying home and mostly rested and slept. Client stated when his came to check on him he did make a comment when asked if he was feeling depressed ?well what do you expect when my family left me on Thanksgiving?. Client reported he was laughing when he made this comment and believes his would have figured out he was joking. Through further exploration client admitted he was bothered that his [id number] made the comment she didn't want him there. Client expressed frustration that his 's family is harsh on him due to his addiction history but when it comes to themselves and their own issues it is fine. Client said that he was hurt by the comment in is frustrated with his [id number]. Client reported despite this stressor he does feel like the Zyprexa increase is helping with his auditory hallucinations and is definitely helping with his sleep at night. Client stated the voices are there still but less intense in his nightmares has significantly decreased. Client reported he's still having brain fog and cloudiness which impacts his ability to concentrate but it's difficult to determine if this is connected to medications or his recent concussion. Client reported his still once client to get off the Zyprexa but he wants to give it a real go by consistently taking it for a while before making a rash decision on changing his medication. Client said he personally has noticed benefit in taking the Zyprexa with improved sleep and decreased hallucinations. Risks/Concerns:: Denies suicidal ideation, plan, or intention to date. future oriented. Progress Toward Goals/Plan:: Progress noted with client reporting improved sleep, decreased nightmares, and decrease in intensity and frequency of his auditory hallucinations. Client reports adjusting to Zyprexa increase well. Client appeared more irritable in session and guarded. Therapist discussed with client importance of not holding in emotions. Client connected with discussion and appeared more willing to discuss how he was feeling about recent holiday stressor. Client to continue IOP to decrease auditory hallucinations, improve distress tolerance, and prevent decompensation. Time Stopped:: 09:50
--- NOTE | 2023-05-30 09:00 | BH.SGPN.GN ---
Behaviors/Verbalizations/Mental Status: [Patient was alert and oriented, appropriately dressed and groomed. Eye contact was good, motor activity normal, speech within normal limits. Affect congruent, mood content. Thoughts linear, logical, no signs of hallucinations or delusions. Reviewed Patients symptom tracker and the patient reports depressed mood, anxiety/panic attacks, aggravation/irritation/anger, self-harm urges, and risk/thoughts of suicide within patients normal base level.] Client Response/Progress/Benefit: [Patient was engaged and open to the discussion. Patient reported his mood to be ?excited and anxious?. 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 Patients second win was that he was able to get through Thanksgiving without feeling depressed and spent a lot of time with his family. 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 Patient was interactive and respectful with other group members about their mental wins and stressors. Patient benefited from the discussion by listening to feedback and giving input on his peer?s stressors and mental health wins. Patient will continue with IOP treatment to help develop healthy skills, promote mood stability, and improve distress tolerance.] Narrative Note: []
--- NOTE | 2023-05-30 10:15 | BH.SGPN.GN ---
Behaviors/Verbalizations/Mental Status: [] Eye contact is good. Motor activity is appropriate. Appearance is casual. Speech is Appropriate. Mood is euthymic. Affect is congruent. Thoughts are linear and logical. No evidence of psychosis. Client Response/Progress/Benefit: []Pt engaged participant AEB listening to others, engaging in activity, and providing feedback at times. Attentive during psychoeducation and provided insight into obstacles in the way of mental wellness. Pt shared with group current mental health reality and desired mental health reality. Stated coming to IOP and taking medications as steps he is currently making to get closer to desired reality. Identified barriers to desired reality include: negative thinking, financial stress, isolation, unhealthy coping, and low motivation. Benefited from taking look at current mental health state and obstacles for progress. Pt to continue IOP to continue use of healthy coping skills, improve confidence, and prevent decompensation.
--- NOTE | 2023-05-30 11:20 | BH.SGPN.GN ---
Behaviors/Verbalizations/Mental Status: []Eye contact is fair. Motor activity is appropriate. Appearance is casual. Speech is Appropriate. Mood is euthymic. Affect is constricted. Thoughts are linear and logical. No evidence of psychosis. Client Response/Progress/Benefit: [] Pt responded well to session, engaged throughout and providing ideas. Provided input when prompted during discussion on what potential internal barriers may be keeping them from reaching their desired reality. Pt identified wanting to work on personal barrier of finances by starting a needs vs wants list to help be more mindful of his purchases. Pt appeared to benefit from brainstorming skills to overcome internal barriers, as well as support of the group. Will continue in IOP tx to reduce use of unhealthy coping skills, improve mood stability, and increase self-awareness. ?? Narrative Note: []
--- NOTE | 2023-06-01 09:05 | BH.SGPN.GN ---
Behaviors/Verbalizations/Mental Status: [] Eye contact is good. Motor activity is restless (back injury). Appearance is casual. Speech is Appropriate. Mood is depressed/irritable. Affect is congruent. Thoughts are linear and logical. No evidence of psychosis. Reviewed daily check in sheet and no reports of suicidal ideations or intent. Client Response/Progress/Benefit: [] Pt participated at times. Attentive. Shared he tore something in my back which has led to pain, irritability, and overall stress. He also discussed some bad news regarding his work. I've got a lot of stress going on right now. Despite these stressors he reports my mood is good. During his check-in he was reframing the events. He was also pointing out potential benefits that could result from the bad news at work. He is not ruminating stating I'm planning things which helps. Engaged in group discussions and provided appropriate feedback to peers. Progress noted per pt report however does has history of minimizing his emotions. Beneifted from group support, encouragement, and feedback. Will contine in IOP to prevent decompensation, increase healthy coping, and to improve functioning. Narrative Note: []
--- NOTE | 2023-06-01 11:10 | BH.SGPN.GN ---
Behaviors/Verbalizations/Mental Status: []Pt alert and oriented, casually dressed and groomed. Eye contact good. Motor activity appropriate. Speech within normal limits. Affect congruent, mood euthymic. Thoughts linear, logical, no signs of hallucinations or delusions. Client Response/Progress/Benefit: []Pt responded well to session, engaged in the experiential activity and attentive throughout group processing. Pt completed fear of failure worksheet and was able to identify thoughts and behaviors that reinforce personal fear of failure including: not asking for help, low distress tolerance, and pain.?Pt participated in group discussion regarding strategies to overcome fear of failure. Identified wanting to work on?using more grounding techniques. Appeared to benefit from increased knowledge of strategies to combat fear of failure and gaining self-awareness. Pt will continue IOP tx to promote use of healthy coping skills and improve daily functioning.? Narrative Note: []
--- NOTE | 2023-06-01 12:07 | PCM.BH.PN_ITS ---
Progress Note Progress Note: History of Present Illness/Interim History: The patient is a 42-year-old male with a history of depression, anxiety, PTSD and methamphetamine and alcohol use disorder (sober for 2+ months) who is seen in follow-up at the [facility] behavioral health IOP. [facility] I last saw the patient 2 weeks ago and at that time his Zyprexa was increased to 7.5 mg at bedtime. The patient states that his auditory hallucinations have resolved completely. He is much less irritable at home and his mood has improved and is more stable. He has been sober for over 3 weeks from using any marijuana also. He has a mild tremor on the increased dose of Zyprexa however and he also describes finding it hard to sit still which is consistent with akathisia. Can he continues to sleep well at 7 to 9 hours a night and he denies any self-harm. He denies passive thoughts of , suicidal ideation, homicidal ideation, hallucinations or delusions. Current Psychiatric Medications: [] Zyprexa 7.5 mg p.o. nightly (x 2 weeks at this dose) Mental Status Examination: [] The patient is a 42-year-old male who is tall and thin and appears normal for stated age and is casually dressed and groomed with good hygiene. Eye contact is good and speech is normal rate and rhythm and fluent with no pressure. Mood is euthymic. Affect is full and normal. There is no psychomotor agitation or retardation. Thought process is goal-directed and organized. Thought content: There is no evidence of auditory hallucinations. There is no evidence of any delusions, passive thoughts of , suicidal ideation, plan for suicide, homicidal ideation. Reality testing is intact. Insight is limited but some present. Judgment is intact. Impulsivity is high. Diagnoses: [] 1. PTSD 2. 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 Cannabis use disorder (sober x 3 weeks) 5. Methamphetamine and alcohol use disorder (sober since March 17, 2023) 6. Recent concussion and history of numerous concussions 7. Primary support, work, legal and financial issues Plan: [] The patient will continue the IOP at [facility] as the structure, support, education and group therapy will hopefully prevent worsening of the patient's symptoms that might require hospitalization. He felt safe during the interview and if it anytime he does not feel safe he will let us know or go to the emergency room. The risk, options, possible complications and side effects of the medications were again discussed with the patient and he understands accepts these. The patient agrees to take propranolol for his akathisia and tremor. Prescription is sent in for this at 10 mg p.o. twice daily. He will continue to stay sober from marijuana and all other drugs. He will continue to follow-up with his outpatient providers and I will see the patient in follow-up in 2 weeks.
== END 2023-06-02 23:59 ==
LOC: BHIOP 06:49
PROVIDERS: Referring Provider Psychiatry & Neurology Psychiatry; Visit Provider Psychiatry & Neurology Psychiatry
DX: F19.94 Other psychoactive substance use, unspecified with psychoactive substance-induced mood disorder (principal); F12.90 Cannabis use, unspecified, uncomplicated; F11.90 Opioid use, unspecified, uncomplicated; F10.90 Alcohol use, unspecified, uncomplicated
CPT/HCPCS: S9480; 90834; 90837; 90853

== ENCOUNTER 2023-06-03 07:08 | Outpatient (RCR) | payer OTHER, SELFPAY ==
[2023-06-03 00:50] VITALS: BP 116/85; PULSE 51
--- NOTE | 2023-06-07 09:05 | BH.SGPN.GN ---
Behaviors/Verbalizations/Mental Status: [] Eye contact is good. Motor activity is appropriate. Appearance is casual. Speech is Appropriate. Mood is euthymic. Affect is full. Thoughts are linear and logical. No evidence of psychosis. Reviewed daily check in sheet and no reports of suicidal ideations or intent. Client Response/Progress/Benefit: [] Pt was an active participant in group discussion. Attentive. Emotion for today is relaxed. He reports increased clarity in my mind. States I'm less foggy. Reports feeling more hopeful about his mental health than he has in the past. I'm glad I was patient with IOP and the medications. Discussed the negative impact of being impulsive and inpatient regarding his medications and treatment in the past often stopping id he didn't see immediate results. He shared mental health wins over the weekend and his ability to manage stressors appropriately. He also mentioned a significant reduction in his auditory hallucinations, which is something that he has not shared with the group previously. Despite stressors over the weekend no exacerbation of distress. Benefited from group support, encouragement, and feedback. Will continue in IOP to prevent decompensation, stabilize mood, and improve functioning. Narrative Note: []
--- NOTE | 2023-06-07 10:10 | BH.SGPN.GN ---
Behaviors/Verbalizations/Mental Status: [] Eye contact is good. Motor activity is appropriate. Appearance is casual. Speech is Appropriate. Mood is content. Affect is congruent. Thoughts are linear and logical, at times appearing distracted. No evidence of psychosis. Client Response/Progress/Benefit: [] Pt was an active participant during group discussions and group activities. Attentive during psychoeducation. Engaged during activity in which they identified which type of foods (i.e. carbs, sugar, salt, fast food, caffeine, etc) they seek out when sad, tired, angry, rushed, anxious, etc. Pt was able to identify the impact that certain foods have on their mental health through group example which was beneficial. Identified how he turns to alcohol when depressed or bored which long-term causes guilt and reinforces depression. Benefited from increased awareness of the connection between nutrition and mental health. Will continue in IOP to prevent decompensation, increase healthy communication with supports, and continue to improve functioning. Narrative Note: []
--- NOTE | 2023-06-07 11:10 | BH.SGPN.GN ---
Behaviors/Verbalizations/Mental Status: []Pt alert and oriented, neatly dressed and groomed. Eye contact good. Motor activity appropriate. Speech within normal limits. Affect congruent, mood euthymic. Thoughts linear, logical, no signs of hallucinations or delusions. Client Response/Progress/Benefit: [] Pt was an active participant throughout AEB contributing to group discussion and taking notes. Pt provided input during small group discussion on strategies to combat each factor maintaining adverse nutritional cycles. Worked with group to identify ways to foster more mindful nutritional choices. Each group participant identified one small step they could take today to begin establishing mental wellness promoting nutritional choices. Pt shared plans to?continue reaching out to his healthy supports and distracting himself when he wants to use. Appeared to benefit from gaining insight into mental wellness centered nutrition and identifying personal steps Pt can take to support own nutritional psychology. Recommended continued IOP tx to promote use of healthy coping skills and improve mood stability. Narrative Note: []
--- NOTE | 2023-06-08 09:02 | BH.SGPN.GN ---
Behaviors/Verbalizations/Mental Status: [] Pt alert and oriented, casually dressed and groomed. Eye contact good. Motor activity appropriate. Speech within normal limits. Affect congruent, mood euthymic. Thoughts linear, logical, no signs of hallucinations or delusions. Reviewed pt?s symptom tracker, pt reports no suicidal ideation or intention. Client Response/Progress/Benefit: [] Client responded well to session as evidenced by listening attentively to others, providing feedback, and processing with group. Client reported stated stressor yesterday was breaking his gas line outside. Client stated he tried to fix it himself, but eventually scheduled to have someone come to fix it this morning. Client reported he feels like he managed the stressful situation well yesterday. Client stated the stressor turned into a positive because now the gas line will be fixed and put into a better place outside. Client reported mental health positive as selling three vehicles which will help him with buying a newer vehicle. 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 Client seemed to benefit from support from others and highlighting progress he has made. Client to continue IOP to continue working on distress tolerance, increase healthy coping, and prevent decompensation.
--- NOTE | 2023-06-08 10:10 | BH.SGPN.GN ---
Behaviors/Verbalizations/Mental Status: [] Eye contact is good. Motor activity is appropriate. Appearance is casual. Speech is Appropriate. Mood is anxious. Affect is congruent. Thoughts are linear and logical. No evidence of psychosis. Client Response/Progress/Benefit: [] Pt was an active participant in group discussion. Attentive. Participated during interactive discussion on what is meant by Taking Action and what is holding them back from taking action on their mental health. Participated with peers during small group discussions on the impact of negative thoughts, depression, anxiety, guilt, low self-esteem, and anger on an individual's functioning. Areas that patient wished to gain more control over include; fear, unhealthy habits, isolation, and running away when overwhelmed. Believes that if they can gain more control over those areas of their life they will move forward more often and regress less. Benefited from increased awareness of obstacles to mental wellness. Will continue in IOP to prevent decompensation, increase healthy coping, and improve functioning. Narrative Note: []
--- NOTE | 2023-06-08 13:43 | BH.MDN_ITS ---
Multi-Disciplinary Note Note 45-min Individual: Time Started:: 11:08 Date: 06/08/23 Purpose of session/treatment goals addressed:: Purpose of session was to address goals 1 and 2 from [facility]. Eye Contact:: Fair Motor Activity:: Appropriate Appearance:: Casual Speech:: Appropriate Mood:: Euthymic Affect:: Congruent Thoughts:: Linear, Logical and No evidence of hallucinations/delusions noted Staff Interventions:: CBT techniques, discharge planning, strengths perspective, goal setting and other (reviewed healthy skills) Client Response:: Client reported he has been doing really well the last couple of weeks. 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 Client reported completing the job over the weekend helped show himself that he can still get things done. Client stated he has noticed in the last week decrease in brain fog, improved clarity, and significant decrease in auditory hallucinations. Client reported his hallucinations are almost completely gone which has been very helpful for his anxiety and mood. Client stated the new medication he was put on last week has been helping with his shaking hands. Client reported he is pleased that he chose to stick with his medications because can now finally see the benefit. Client reported yesterday he was faced with significant stressor after running into his gas line at his house. Client stated in the past he would've struggled with managing his emotions and likely made an impulsive decision that wouldn't have resolved the issue. Client reported he was able to effectively problem solve in the moment. Client stated he believes the way he managed the stressor yesterday shows how much progress he has made. Client reported he is starting to feel ready to discharge from [facility]. Client agreed to tentative discharge next week. Risks/Concerns:: Denies suicidal ideation, plan, or intention to date. future oriented. Progress Toward Goals/Plan:: Progress noted with client reporting improved mood stability, decreased anxiety, decreased auditory hallucinations, and decreased depression. Client able to complete a job at work that he'd been having trouble doing. Client reports improved daily functioning, improved concentration, and ability to manage stressors more effectively. Plan is for client to discharge from [facility] next week. Time Stopped:: 12:50
--- NOTE | 2023-06-10 09:00 | BH.SGPN.GN ---
Behaviors/Verbalizations/Mental Status: []Eye contact is good. Motor activity is appropriate. Appearance is casual. Speech is Appropriate. Mood is euthymic. Affect is congruent. Thoughts are linear and logical. No evidence of psychosis. Reviewed daily check in sheet and no reports of suicidal ideations or intent. Client Response/Progress/Benefit: []Pt responded well to session, attentive and providing supportive statements. Pt reports feeling rested this morning and shared that yesterday he took the day off to rest which pt does not often allow himself to do. Pt's mental health wins include having a busy, family-filled weekend this weekend and getting things accomplished for work. Pt's weekend and work are also his stressors today, but pt shared I don't want to talk about stressors when I'm feeling good. Pt appeared to benefit from connecting with peers. Pt will continue IOP tx to promote mood stability, increase distress tolerance, and maintain sobriety. Narrative Note: []
--- NOTE | 2023-06-10 10:05 | BH.SGPN.GN ---
Behaviors/Verbalizations/Mental Status: []Eye contact is good. Motor activity is appropriate, somewhat restless AEB walking around during group. Appearance is casual. Speech is Appropriate. Mood is anxious. Affect is congruent. Thoughts are linear and logical. No evidence of psychosis. Client Response/Progress/Benefit: []Pt was an active participant in group discussion. Attentive during psychoeducation on the CBT [place] (Thoughts, Behaviors, Emotions). Engaged in group discussion on how thoughts and behaviors can contribute to maintaining adverse feelings, such as depression, anxiety, and irritability. Completed worksheet in which pt identified a thought that is keeping them stuck or is in obstacle to increased mental wellness. The thoughts that pt identified were ?I can't get better, I fail at everything I try, and I can't do it. Shared this maintains depression and anxiety cycles. Pt benefited from increased awareness of the basis of CBT therapy as well as specific thoughts that are impacting pt' progress. Will continue in IOP to promote mood stability, prevent decompensation, and to increase communication with supports. Narrative Note: []
--- NOTE | 2023-06-10 11:00 | BH.SGPN.GN ---
Behaviors/Verbalizations/Mental Status: []Pt alert and oriented, casually dressed and groomed. Eye contact good. Motor activity appropriate. Speech within normal limits. Affect congruent, mood content and anxious. Thoughts linear, logical, no signs of hallucinations or delusions. Client Response/Progress/Benefit: []Pt responded well to session, contributing to discussion and attentive throughout discussion. Pt identified a negative thought that has kept them stuck. Pt's thought was I can't do it.? Pt reported when they think this way, pt gets disheartened and agitated with himself which results in not trying or giving up. Pt worked to reframe the thought by finding more rational, realistic ways to look at the thoughts and then processed them within group setting. Pt reframed the thought to ?Most of the time I have been able to find a way to do it when I try?. Pt appeared to benefit from practicing challenging negative thinking. Pt will continue IOP tx to prevent decompensation, increase healthy communication with supports, and maintain gains. ? Narrative Note: []
--- NOTE | 2023-06-14 09:05 | BH.SGPN.GN ---
Behaviors/Verbalizations/Mental Status: [] Eye contact is good. Motor activity is appropriate. Appearance is casual. Speech is Appropriate. Mood is euthymic. Affect is full. Thoughts are linear and logical. No evidence of psychosis. Reviewed daily check in sheet and no reports of suicidal ideations or intent. Client Response/Progress/Benefit: [] Pt was an active participant in group discussions. Attentive. Shared with the group that he will be completing IOP on 06/17/23. He discussed his aftercare plan and has psychiatry appointment next week and counseling already set up. Everything is going good. In the past 2 weeks his clarity has improved, is managing stress/emotions more effectively, and is nightmare free. He is medication compliant which has been an issue for him in the past. Admits that he would give up on medications that did not have immediate results. Briefly discussed his struggles in the program however is relieved that overall he has seen significant improvement. He has not used any alcohol or cannabis in several weeks with increased insight that these substances were not benefiting his mental health. Progress noted per pt report. Benefited from group support, encouragement, and feedback. Will continue in IOP to maintain gains, increase healthy coping, and to improve functioning. Narrative Note: []
--- NOTE | 2023-06-14 10:15 | BH.SGPN.GN ---
Behaviors/Verbalizations/Mental Status: []Pt alert and oriented, neatly dressed and groomed. Eye contact good. Motor activity appropriate. Speech within normal limits. Affect congruent, mood euthymic. Thoughts linear, logical, no signs of hallucinations or delusions. Client Response/Progress/Benefit: [] Pt engaged in group session AEB listening to others, taking notes throughout, and engaged in the activity. Group attentive during psychoeducation about emotion regulation and dysregulation. Pt stated that he has learned the importance of allowing others to help him and in the activity he reported feeling ?calm? knowing peers were supporting him. Appeared to connect with scenarios reviewed in group on emotion regulation vs dysregulation. Pt benefited from session by gaining an increased understanding on the importance of managing emotions. Pt to continue IOP to promote gains, reinforce healthy coping skills, and establish aftercare. ? Narrative Note: []
--- NOTE | 2023-06-14 11:15 | BH.SGPN.GN ---
Behaviors/Verbalizations/Mental Status: []Pt alert and oriented, casually dressed and groomed. Eye contact fair. Motor activity appropriate. Speech within normal limits. Affect congruent, mood anxious. Thoughts linear, logical, no signs of hallucinations or delusions. Client Response/Progress/Benefit: [] Pt mostly passive participant in session AEB Pt listening attentively to peers and at times providing input. Attentive during psychoeducation on 4 zones of regulation. Pt able to identify feelings and behaviors for each zone. Pt identified coping skills one can use to support self in each zone. Identified one skill from each zone she can practice which included: ride the wave, grounding tools, contact sponsor or helpful support, and stay away from alcohol/drugs. Benefited from increased education on zones of regulation or stages of alertness for emotions and healthy coping skills to use for each zone. Will continue IOP tx to maintain sobriety, increase utilization of healthy coping skills, and prevent decompensation.
--- NOTE | 2023-06-15 09:00 | BH.SGPN.GN ---
Behaviors/Verbalizations/Mental Status: [] Pt alert and oriented, neat and casually dressed and groomed. Eye contact good. Motor activity appropriate. Speech within normal limits. Affect congruent, mood euthymic. Thoughts linear, logical, no signs of hallucinations or delusions. Reviewed pt?s symptom tracker, pt reports no suicidal ideation or intention. Client Response/Progress/Benefit: [] Client responded well to session as evidenced by listening attentively to others, providing feedback, and processing with group. Per symptom tracker client reported a 0/5, with 5 being severe, for depressed mood (which is improved for pt) and a 0/5 for anxiety. Client reported mental health positive as spending time with his son by supporting him at his wrestling matches. Shared this has been a great opportunity for the whole family to [place] and pt to grow closer with his son as he wrestled in school as well. Additional win noted as successfully completing the IOP program, sharing that today is his last day. Reflected on his progress and skills he can continue to use following d/c. Expressed gratitude and noted feeling glad he followed-through with the IOP program as he is no longer experiencing a majority of the sx he had been at admission. Client seemed to benefit from support from others and highlighting progress he has made. Client to d/c today and continue with outpatient tx to maintain mood stability, and prevent decompensation. Narrative Note: []
--- NOTE | 2023-06-15 10:15 | BH.SGPN.GN ---
Behaviors/Verbalizations/Mental Status: []Pt alert and oriented, neatly dressed and groomed. Eye contact good. Motor activity appropriate. Speech within normal limits. Affect congruent, mood euthymic. Thoughts linear, logical, no signs of hallucinations or delusions. Client Response/Progress/Benefit: [] Pt was an active participant in group discussions and experiential activity. Participated during interactive discussion in which group worked together to define resilience (i.e. continuing to bounce back from hardship; willingness to keep trying) and what makes being resilient hard. Participated during interactive discussion on if resilience is something we are born with or can learn. Pt noted that learning to be vulnerable helped him be resilient. Able to relate the experiential activity back to topic of resilience. Worked well in small groups to identify strategies to build resilience. Benefited from increased awareness of the role of resilience in mental health and ways to build resilience. Will discharge from IOP tx as pt has accomplished his tx goals and no longer meets criteria for IOP level of care. Narrative Note: []
--- NOTE | 2023-06-15 11:15 | BH.SGPN.GN ---
Behaviors/Verbalizations/Mental Status: [] Client Response/Progress/Benefit: [] Pt was an active participant in group discussions. Participated during interactive discussions and in experiential activity with peers. Pt identified resiliency traits they have and how these traits currently help them. Pt focused on Accepting Change and beleivbes that this has helped him try new things and go with the flow.Benefited from practicing resiliency traits during experiential activity and identifying personal resiliency factors.Will continue in IOP to prevent decompensation, stabilize mood, increase healthy coping, and improve functioning. Narrative Note: []
--- NOTE | 2023-06-20 10:27 | BH.MDN ---
Multi-Disciplinary Note Note 45-min Individual: Time Started:: 08:01 Date: 06/20/23 Purpose of session/treatment goals addressed:: Purpose of session was to review treatment progress, complete maintenance plan, and solidify aftercare details. Eye Contact:: Good Motor Activity:: Appropriate Appearance:: Neat Speech:: Appropriate Mood:: Euthymic Affect:: Full Thoughts:: Linear, Logical and No evidence of hallucinations/delusions noted Staff Interventions:: CBT techniques, discharge planning, strengths perspective and other (Complete maintenance plan) Client Response:: Client reported feeling excited to complete the IOP program because he has progressed in many areas. Client stated he cannot progress with improved communication, improve problem-solving, decreased depression, decrease anxiety, ability to manage his emotions more effectively, and maintaining sobriety from alcohol and meth for almost 3 months. Client stated he has decreased his utilization of medical marijuana because he recognizes it could impact his auditory hallucinations. Client stated significant progress is not having auditory hallucinations sometimes at all during the day. Client stated this has significantly helped decrease his urges to use because it can be exhausting to constantly have chatter in his head. Client reported he did share with his outpatient psychiatrist this morning that he did have an urge to use alcohol over the weekend but was able to stop himself from using. Client reported the psychiatrist gave him a medication that he could take to help reduce the cravings. 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 Client worked with therapist to complete maintenance plan in which she identified triggers, warning signs, self-care activities, and healthy coping skills. Client able to work with therapist to identify ways to avoid and manage the potential triggers for him. Client reported he does have another outpatient psychiatry appointment established for August 2023. Client reported he saw his outpatient psychiatrist this morning. Client is reestablishing with a previous pastoral counselor and will meet with this counselor after the holidays. Client stated he does feel more stable and has improved skills and strategies to help him manage life stressors. Risks/Concerns:: Denies suicidal ideation, plan, and intention. Future oriented. Family as protective factor. Progress Toward Goals/Plan:: Progress noted with client reporting improved mood stability, significant decrease in auditory hallucinations, ability to problem solve more effectively, and overall reduce urges to use. Client has reported consistently taking his medication. Client reported being more communicative to his family and honest with his outpatient providers about his mental health. Client in the process of taking steps in regards to work to make it less stressful because he does not want to set himself up for failure. Plan is for client to discharge from IOP to day. Client has appointment with Dr. Rascon for August 2023 for medication management. Client is seeing Emery Brown for individual counseling starting after the holidays. Time Stopped:: 08:43
--- NOTE | 2023-06-20 15:21 | BH.DS_ITS ---
Discharge Summary Demographics Date of Admission:: 04/25/23 Discharge Date: 06/20/23 Presenting Problems at Admission:: The patient is a 42-year-old male with a history of depression, anxiety, PTSD, methamphetamine use and alcohol use disorder. The patient was referred to the [facility] behavioral health IOP by [facility] adult probation because the patient states my mental health is impacting my ability to function. He currently has some depression, guilt, decreased concentration, worthlessness, lack of motivation, isolation and states he has had low self-esteem for a very long time. Denies any other alcohol or methamphetamine use since March 17, 2023. The patient states that 2 years ago he began hearing voices after methamphetamine use which are auditory hallucinations of voices of people he knows for the most part. He has nightmares, avoidance, exaggerated startle and occasional reexperiencing from this. Discharge Diagnoses:: 1. PTSD 2. 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 Cannabis use disorder (sober x 3 weeks) 5. Methamphetamine and alcohol use disorder (sober since March 17, 2023) 6. Recent concussion and history of numerous concussions Reason for Discharge:: Client has reported significant treatment progress and no longer meets medical necessity for IOP level of care. Client reports having mood stability, little to no auditory hallucinations, improved sleep, decreased nightmares, and improved ability to manage external stressors. Treatment Progress During Treatment & Response: Progress noted with client reporting mood stability, little to no auditory hallucinations, improved sleep, decreased nightmares, and improved ability to manage external stressors. Client's DSM 5 cross-cutting measure did not show any changes to his depression from intake to discharge, however client scored his depression in the mild range at admission. Client's DSM 5 shows a 50% increase in anxiety when compared to admission scores. Client's unpleasant urges and compulsions decreased by 75%. Client's auditory hallucinations reduced by 67%. Although client's DSM 5 cross cutting measure scores showed no decrease in depression and a increase in anxiety when discussed with client he notes much greater improvement then his scores are indicating. This could be attributed to client potentially minimizing his symptoms at admission. Client does note he has improved daily functioning, improved problem solving, clarity in thought, and improved communication. Issues Still to be Addressed:: Client could benefit from continued relapse prevention work and maintaining sobriety. Discharge Recommendations/Instructions:: Client has appointment with Dr. Rascon for medication management in August 2023. Client is meeting with his outpatient pastoral counselor, Emery Brown, the week of July 05. Discharge Handout
== END 2023-06-20 09:08 | disposition home or self-care (01) ==
LOC: BHIOP 07:08
PROVIDERS: Referring Provider Psychiatry & Neurology Psychiatry; Visit Provider Psychiatry & Neurology Psychiatry
DX: F43.10 Post-traumatic stress disorder, unspecified (principal); F19.94 Other psychoactive substance use, unspecified with psychoactive substance-induced mood disorder; F12.90 Cannabis use, unspecified, uncomplicated; F10.90 Alcohol use, unspecified, uncomplicated; F11.90 Opioid use, unspecified, uncomplicated
CPT/HCPCS: S9480; 90834; 90853